=== PATIENT | female | born 1965 | race Caucasian/White ===

== ENCOUNTER 2018-03-07 08:35 | Emergency (ER) | payer OTHER ==
[~2018-03-07] VITALS: Ht 144.8 cm; Wt 65.3 kg
[2018-03-07 08:42] VITALS: Ht 144.8 cm; Wt 65.3 kg
[2018-03-07 09:30] LABS: BASOPHIL % 0.5 % (0-2); PLATELET COUNT 213 x10^3mcL (130-400); RED CELL DISTRIBUTION WIDTH 13.7 % (11.5-14.5)
[2018-03-07 09:45] LABS: CARBON DIOXIDE 29.5 mmol/L (21-32); CHLORIDE SERUM 104 mmol/L (98-107); CREATININE SERUM 0.7 mg/dL (0.6-1.0); GFR1 > 60 mL/min; GLUCOSE SERUM 363 mg/dL (74-106); POTASSIUM SERUM 4.1 mmol/L (3.5-5.1); SODIUM SERUM 140 mmol/L (136-145)
[2018-03-07 09:50] LABS: ALBUMIN 3.6 g/dL (3.4-5.0); ALKALINE PHOSPHATASE 173 U/L (46-116); ALT/SGPT 72 U/L (14-59); AST/SGOT 38 U/L (15-37); BILIRUBIN TOTAL 0.67 mg/dL (0.20-1.00); LIPASE 153 IU/L (73-393); TOTAL PROTEIN, SERUM 7.6 g/dL (6.4-8.2)
[2018-03-07 10:10] LABS: microscopic required? NO
[2018-03-07 10:19] LABS: urine erythrocyte NEGATIVE (NEGATIVE)
[2018-03-07 12:01] VITALS: BP 145/66
== END 2018-03-07 12:01 | disposition home or self-care (01) ==
LOC: ED 08:35
PROVIDERS: Emergency Medicine
DX: E11.9 Type 2 diabetes mellitus without complications (principal)
CPT/HCPCS: 82962; J7030